=== PATIENT | female | born 1955 | race Caucasian/White ===

== ENCOUNTER → 2016-11-27 | Outpatient (CLI) | payer OTHER ==
--- NOTE | ~2016-11-27 | EE ---
Unit #: [id number] #: [id number] Patient: BRENDEN LOPES [id number] [address] [address] [id number] O MR#: [id number] NAME: BRENDEN LOPES. : 1955 SEX: F STUDY DATE/TIME: 11/27/2016 UNIT: CEEG ROOM: STUDY DESCRIPTION: EEG Attending Physician: Loida Pickard M.D. Referring Physician: Keke Carreno M.D. Primary Care Physician: Generic Doctor Not In System NEURODIAGNOSTICS REPORT EXAM EEG REASON FOR THE STUDY Complex partial epilepsy. EEG DESCRIPTION This is an outpatient, digitally recorded multi-montage adult EEG with leads placed according to the International 10-20 System. Hyperventilation and photic stimulation was attempted. With the patient fully aroused, there is sometimes 8 Hz posterior background and the patient later on became drowsy and stage 2 sleep was seen. The dominant feature of this EEG is subtle slowing on the left side, sometimes 5 to 7 Hz, which may have been accentuated by hyperventilation and also phase reversing. It is between F7 and T3. It looks like spike and wave and rarely between T3 and T5. Photic stimulation was attempted but I did not see any driving, asymmetry or paroxysmal activity. IMPRESSION This is an abnormal adult awake and asleep EEG. The abnormality is possibility of subtle slowing and irritable foci or epileptiform type activity on the left side. Please clinically correlate with the patient history and definitely with imaging studies. Dictated by... Manas Alamo/refugio TD: 11/27/2016 12:53 JOB #: [id number] Unit #: [id number] #: [id number] Patient: BRENDEN LOPES NEURODIAGNOSTICS REPORT Page 1 of 1 X Rabia Petit MD NEURODIAGNOSTICS REPORT
== END | disposition home or self-care (01) ==
LOC: CEEG 07:01
DX: G40.209 Localization-related (focal) (partial) symptomatic epilepsy and epileptic syndromes with complex partial seizures, not intractable, without status epilepticus (principal)
CPT/HCPCS: 95816